=== PATIENT | female | born 1955 | race African-American/Black ===

== ENCOUNTER 2016-06-19 13:28 | Emergency (ER) | payer SELFPAY ==
[~2016-06-19] VITALS: Ht 162.6 cm; Wt 89.0 kg
[2016-06-19 13:32] VITALS: BP 204/136; PULSE 98; RESP 16; TEMP 98.8; O2SAT 97
--- NOTE | 2016-06-19 14:19 | PD ---
HPI Chief Complaint: Fall Time Seen by Provider: 13:51 Travel History International Travel<30 days: No Contact w/Intl Traveler<30days: No Traveled to known affect area: No History of Present Illness HPI This is a 60 year-old woman who presents to the emergency department after falling out of bed this morning. She is otherwise healthy with no known medical problems but doesn't really like to see doctors. She complains of pain on the left side of her face, her left shoulder, both knees. Unclear if she got knocked out or not. Some clear she had syncope or chest fell. She states she otherwise has been feeling generally well and healthy over the past several weeks. No other complaints. History Past Medical History Medical History: Denies Significant Hx Social History Tobacco Use: No Allergies-Medications (Allergen,Severity, Reaction): Coded Allergies: Penicillin (Verified Allergy, Severe, 06/19/16) Reported Meds & Prescriptions Reported Meds & Active Scripts Active No Active Prescriptions or Reported Medications Review of Systems Except as stated in HPI: all other systems reviewed are Neg Physical Exam Narrative GENERAL: Well-appearing 60 year-old woman, no acute distress. SKIN: Warm and dry. HEAD: Atraumatic. Normocephalic. EYES: Pupils equal and round. No scleral icterus. No injection or drainage. ENT: Tenderness over the left zygoma and left maxilla. Inside the mouth or bleeding. She has 2 small cuts on the buccal mucosa on the left. The teeth in the mandible and maxilla are tender to percussion on the left. There is no teeth that are obviously loose fractured or subluxed. She also has an intraoral laceration in the lower vestibule on the left side where it looks like some of the buccal mucosa has pulled away from the gingiva causing about a 1 cm laceration. NECK: Trachea midline. No midline tenderness. Full painless range of motion. CARDIOVASCULAR: Regular rate and rhythm. No murmur appreciated. RESPIRATORY: No accessory muscle use. Clear to auscultation. Breath sounds equal bilaterally. GASTROINTESTINAL: Abdomen soft, non-tender, nondistended. Hepatic and splenic margins not palpable. MUSCULOSKELETAL: No obvious deformities. Examination of the left upper extremity reveals no pain or tenderness at the elbow or wrist. A little bit tenderness the shoulder, more on the lateral shoulder. She is limited range of motion due to pain. She has more limited active range of motion and passive range of motion. Passively she can get to about 90 and abduction or flexion. She is unable to hold the arm at abduction or flexion after his passively raise. She has pain with internal or external rotation especially against resistance. Both her knees are little bit tender. She has preserved range of motion of the hips and knees however. There is no obvious effusion on either knee. No other obvious extremity injuries. NEUROLOGICAL: Awake and alert. No obvious cranial nerve deficits. Motor grossly within normal limits. Normal speech. PSYCHIATRIC: Appropriate mood and affect; insight and judgment normal. Data Data Last Documented VS Vital Signs Date Time Temp Pulse Resp B/P Pulse Ox O2 Delivery O2 Flow Rate FiO2 06/19/16 16:20 100 18 237/115 96 Room Air 06/19/16 13:[address] Brain W/O Iv Contrast(Rout) (06/19/16 ) Ct Facial Bones W/O Iv Cont (06/19/16 ) Shoulder, Complete (>2vws) (06/19/16 ) Knee, Complete (4vws) (06/19/16 ) Complete Blood Count With Diff (06/19/16 14:08) Comprehensive Metabolic Panel (06/19/16 14:08) Urinalysis - C+S If Indicated (06/19/16 14:08) Electrocardiogram (06/19/16 ) Knee, Complete (4vws) (06/19/16 ) Urine Culture (06/19/16 14:45) Ciprofloxacin 400 Mg Premix (Cipro 400 M (06/19/16 15:15) Ciprofloxacin (Cipro) (06/19/16 15:15) Labs Laboratory Tests Test 06/19/16 06/19/16 14:30 14:45 White Blood Count 16.5 TH/MM3 Red Blood Count 5.64 MIL/MM3 Hemoglobin 14.6 GM/DL Hematocrit 45.6 % Mean Corpuscular Volume 80.8 FL Mean Corpuscular Hemoglobin 25.8 PG Mean Corpuscular Hemoglobin 31.9 % Concent Red Cell Distribution Width 12.2 % Platelet Count 322 TH/MM3 Mean Platelet Volume 7.9 FL Neutrophils (%) (Auto) 87.1 % Lymphocytes (%) (Auto) 10.4 % Monocytes (%) (Auto) 2.1 % Eosinophils (%) (Auto) 0.3 % Basophils (%) (Auto) 0.1 % Neutrophils # (Auto) 14.5 TH/MM3 Lymphocytes # (Auto) 1.7 TH/MM3 Monocytes # (Auto) 0.3 TH/MM3 Eosinophils # (Auto) 0.0 TH/MM3 Basophils # (Auto) 0.0 TH/MM3 CBC Comment DIFF FINAL Differential Comment Sodium Level 141 MEQ/L Potassium Level 3.6 MEQ/L Chloride Level 105 MEQ/L Carbon Dioxide Level 27.0 MEQ/L Anion Gap 9 MEQ/L Blood Urea Nitrogen 13 MG/DL Creatinine 0.96 MG/DL Estimat Glomerular Filtration 71 ML/MIN Rate Random Glucose 159 MG/DL Calcium Level 9.3 MG/DL Total Bilirubin 0.6 MG/DL Aspartate Amino Transf 5 U/L (AST/SGOT) Alanine Aminotransferase 18 U/L (ALT/SGPT) Alkaline Phosphatase 108 U/L Total Protein 8.6 GM/DL Albumin 3.7 GM/DL Urine Collection Type CLEAN CATCH Urine Color YELLOW Urine Turbidity SLIGHT Urine pH 6.0 Urine Specific J[place]ison 1.025 Urine Protein 100 mg/dL Urine Glucose (UA) NEG mg/dL Urine Ketones TRACE mg/dL Urine Occult Blood SMALL Urine Nitrite NEG Urine Bilirubin NEG Urine Leukocyte Esterase NEG Urine RBC 10-14 /hpf Urine WBC 9-14 /hpf Urine Squamous Epithelial > 8 /hpf Cells Urine Bacteria MANY /hpf Microscopic Urinalysis Comment CULTURE INDICATED Urine Collection Time 14:45 MDM Medical Decision Making Medical Screen Exam Complete: Yes Emergency Medical Condition: Yes Interpretation(s) My review of EKG: Normal sinus rhythm at a rate of 97, lateral T wave inversions , some inferior Q waves, anterior septal Q waves, likely LVH, possible ischemia. No old for comparison. LABS: CBC remarkable for mild leukocytosis. CMP unremarkable UA with pyuria, hematuria. CT head: Negative CT face: Perimandibular soft tissue injury. Bilateral knee x-rays negative Shoulder x-ray negative Differential Diagnosis Fall, facial injury, rotator cuff injury, fracture, dehydration, weakness, other Narrative Course Medical decision making INITIAL: 60 year-old woman, presents with complaints of pain after a fall. She appears several rotator cuff injury in the left shoulder. I don't think she probably has a fracture. These look okay. She may have facial injuries. She is a little bit of bleeding that appears to be from small mucosal lacerations on the cheek. We'll check labs, CT imaging, EKG, likely discharge. FINAL: Urine shows a little bit of pyuria suggestive of cystitis. Otherwise workup is unremarkable. She does have some intraoral lacerations, the most concerning of which is in the lower vestibule on the left side. This would be very difficult area to offer any repair. I discussed this with the patient, would recommend Peridex rinses, and monitoring. We'll also place her on soft or liquid diet only until this heals in one week. Diagnosis Primary Impression: Laceration of mouth Qualified Code: S01.512A - Laceration of mouth, initial encounter Additional Impressions: Injury of left shoulder Qualified Code: S49.92XA - Injury of left shoulder, initial encounter UTI (urinary tract infection) Qualified Code: N30.00 - Acute cystitis without hematuria Patient Instructions: General Instructions Additional Instructions: Take antibiotics as prescribed. Use oral rinse twice daily. Use soft or liquid diet only. Do not play with the cuts and your mouth. This should heal over about 1 week. Take blood pressure medicines as prescribed. Keep a log of your blood pressure. Follow-up with a primary care physician in the next 2-3 weeks for repeat evaluation. You may have torn your left rotator cuff. If he had persistent pain or weakness after one week, follow-up with your primary care physician. Med/Other Pt SpecificInfo: Prescription(s) given Scripts Ciprofloxacin (Cipro)500 Mg Zcp167 Mg PO BID 5 Days Ref 0 Prov:Ricky Kraft MD 06/19/16 Chlorhexidine Gluconate (Mouth) Liq (Peridex Liq)0.12% Soln15 Ml SWISH-SPIT BID #473 ML Ref 0 Prov:Ricky Kraft MD 06/19/16 Amlodipine 5 Mg Tab5 Mg PO DAILY #30 TAB Ref 0 Prov:Ricky Kraft MD 06/19/16 Ricky Kraft MD Jun 19, 2016 14:19
[2016-06-19 14:39] LABS: AUTOMATED NEUTROPHIL # 14.5 TH/MM3 (1.8-7.7); BASOPHIL % 0.1 % (0.0-2.0); EOSINOPHIL % 0.3 % (0.0-4.0); HEMATOCRIT 45.6 % (35.0-46.0); LYMPH % 10.4 % (9.0-44.0); LYMPHOCYTE # 1.7 TH/MM3 (1.0-4.8); MEAN CELL VOLUME 80.8 FL (80.0-100.0); MEAN CORPUSCULAR HEMOGLOBIN 25.8 PG (27.0-34.0); MEAN CORPUSCULAR HGB CONC 31.9 % (32.0-36.0); MONO % 2.1 % (0.0-8.0); NEUT % 87.1 % (16.0-70.0); PLATELET COUNT 322 TH/MM3 (150-450); RED BLOOD COUNT 5.64 MIL/MM3 (4.00-5.30); RED CELL DISTRIBUTION WIDTH 12.2 % (11.6-17.2); WHITE BLOOD COUNT 16.5 TH/MM3 (4.0-11.0)
[2016-06-19 14:41] LABS: HEMO FLAGS DIFF FINAL
[2016-06-19 14:50] LABS: CHLORIDE 105 MEQ/L (98-107); POTASSIUM 3.6 MEQ/L (3.5-5.1); SODIUM (NA) 141 MEQ/L (136-145)
[2016-06-19 14:52] LABS: BLOOD, URINE SMALL (NEG); GLUCOSE,URINE NEG (NEG); KETONE, URINE TRACE mg/dL (NEG); NITRITE,URINE NEG (NEG)
[2016-06-19 14:55] LABS: ANION GAP 9 MEQ/L (5-15); BLOOD UREA NITROGEN 13 MG/DL (7-18)
[2016-06-19 14:57] LABS: METHOD OF COLLECTION CLEAN CATCH
[2016-06-19 14:58] LABS: ALT (GPT) 18 U/L (10-53); AST (GOT) 5 U/L (15-37); GLOMERULAR FILTRATION RATE 71 ML/MIN (>89)
[2016-06-19 14:58] LABS: BACTERIA, URINE MANY /hpf; COMMENT (UR) CULTURE INDICATED; CULTURE IF INDICATED CULTURE INDICATED; SQUAMOUS EPITHELIAL CELL URINE > 8 /hpf (0-5); URINE COLOR YELLOW (YELLW/STRAW)
[2016-06-19 14:59] LABS: TOTAL BILIRUBIN ADULT 0.6 MG/DL (0.2-1.0)
[2016-06-19 15:01] LABS: ALKALINE PHOSPHATASE 108 U/L (45-117)
[2016-06-19] MEDS ORDERED: CIPROFLOXACIN 500 MG TAB PO ONE (15:15)
[2016-06-19] MEDS ORDERED: CIPROFLOXACIN 400 MG PREMIX 200 ML IV ONE (15:15)
--- NOTE | 2016-06-19 15:24 | RADHPO ---
EXAM DATE/TIME: 06/19/2016 14:54 [facility] COMPARISON: No previous studies available for comparison. INDICATIONS : Fall from bed today, left facial pain. RADIATION DOSE: 64.85 CTDIvol (mGy) MEDICAL HISTORY : None SURGICAL HISTORY : None. ENCOUNTER: Initial ACUITY: 1 day PAIN SCALE: 6/10 LOCATION: Left face TECHNIQUE: Multiple contiguous axial images were obtained of the head. Using automated exposure control and adj ustment of the mA and/or kV according to patient size, radiation dose was kept as low as reasonably a chievable to obtain optimal diagnostic quality images. FINDINGS: CEREBRUM: The ventricles are normal for age. No evidence of midline shift, mass lesion, hemorrhage or acute in farction. No extra-axial fluid collections are seen. POSTERIOR FOSSA: The cerebellum and brainstem are intact. The 4th ventricle is midline. The cerebellopontine angle i s unremarkable. EXTRACRANIAL: The visualized portion of the orbits is intact. SKULL: There is a focal air lucency at the right parietal skull. This is nonspecific. Likely is related to a n incidental finding such as a hemangioma. No evidence of skull fracture. CONCLUSION: No acute disease. Vincent Sarmiento MD on June 19, 2016 at 15:21 Board Certified Radiologist. This report was verified electronically.
--- NOTE | 2016-06-19 15:35 | RADHPO ---
EXAM DATE/TIME: 06/19/2016 14:54 [facility] COMPARISON: No previous studies available for comparison. INDICATIONS : Fall from bed today, left facial pain. RADIATION DOSE: 19.54 CTDIvol (mGy) MEDICAL HISTORY : None SURGICAL HISTORY : None. ENCOUNTER: Initial ACUITY: 1 day PAIN SCORE: 6/10 LOCATION: Left face TECHNIQUE: Volumetric scanning of the facial bones was performed. Using automated exposure control and adjustme nt of the mA and/or kV according to patient size, radiation dose was kept as low as reasonably achiev able to obtain optimal diagnostic quality images. FINDINGS: ORBITS: The orbital and infraorbital osseous structures are intact. The retroconal structures have a normal configuration. No radiopaque foreign bodies are seen. NASAL BONE: The nasal bone and maxillary spine are intact ZYGOMATIC ARCHES: Symmetric without evidence of fracture. SINUSES: There is mild mucosal disease of the left sphenoid sinus. The maxillary, ethmoid and frontal sinuses are intact. No air-fluid levels seen. NASAL CAVITY: The nasal septum is intact and midline. The lacrimal ducts are intact. SOFT TISSUES: There is some soft tissue swelling in the left inferior perimandibular soft tissues. Air is seen in t his region. INTRACRANIAL: No intracranial air seen. CRIBIFORM PLATE: Grossly intact. CONCLUSION: Left inferior perimandibular injury. Vincent Sarmiento MD on June 19, 2016 at 15:24 Board Certified Radiologist. This report was verified electronically.
[2016-06-19 15:36] VITALS: BP 223/110; PULSE 100; RESP 18; O2SAT 99
--- NOTE | 2016-06-19 15:48 | RADHPO ---
EXAM DATE/TIME: 06/19/2016 15:15 [facility] COMPARISON: No previous studies available for comparison. INDICATIONS : Fall, left shoulder pain, limited ROM MEDICAL HISTORY : None. SURGICAL HISTORY : None. ENCOUNTER: Initial ACUITY: 1 day PAIN SCORE: 9/10 LOCATION: Left shoulder FINDINGS: Multiple view examination of the left shoulder demonstrates no evidence of fracture or dislocation. The glenohumeral and acromioclavicular joints are maintained. There is normal range of motion betwee n internal and external rotation. Bony mineralization is normal. CONCLUSION: No acute disease. Vincent Sarmiento MD on June 19, 2016 at 15:46 Board Certified Radiologist. This report was verified electronically.
--- NOTE | 2016-06-19 16:02 | RADHPO ---
EXAM DATE/TIME: 06/19/2016 15:04 [facility] COMPARISON: No previous studies available for comparison. INDICATIONS : Fall, left knee pain MEDICAL HISTORY : None. SURGICAL HISTORY : None. ENCOUNTER: Initial ACUITY: 1 day PAIN SCORE: 9/10 LOCATION: Left knee FINDINGS: The knee joint is grossly normally aligned. There may be some narrowing of the medial joint space. There is some minimal osteophyte seen at the medial femoral condyle. No effusion is seen. No fractu re is seen. CONCLUSION: No acute abnormality is seen. Vincent Sarmiento MD on June 19, 2016 at 15:44 Board Certified Radiologist. This report was verified electronically.
--- NOTE | 2016-06-19 16:03 | RADHPO ---
EXAM DATE/TIME: 06/19/2016 15:09 [facility] COMPARISON: No previous studies available for comparison. INDICATIONS : Fall, right knee pain MEDICAL HISTORY : None. SURGICAL HISTORY : None. ENCOUNTER: Initial ACUITY: 1 day PAIN SCORE: 9/10 LOCATION: Right knee FINDINGS: The knee joint is aligned. No fracture is seen. No effusion is seen. There is some hypertrophic of the posterior aspect of the patella and at the medial joint space. CONCLUSION: No acute abnormality is seen. Vincent Sarimento MD on June 19, 2016 at 15:45 Board Certified Radiologist. This report was verified electronically.
[2016-06-19 16:20] VITALS: BP 237/115; PULSE 100; RESP 18; O2SAT 96
[2016-06-19] MEDS ORDERED: CIPR-9 PO (16:24)
[2016-06-19] MEDS ORDERED: PERI0.126 SWISH-SPIT (16:24)
[2016-06-19] MEDS ORDERED: AMLO5TAB2 PO (16:24)
[2016-06-19] MEDS ORDERED: amLODIPine BESYLATE 5 MG TAB PO ONE (16:30)
--- NOTE | 2016-06-20 16:38 | EKG ---
Date Performed: 06/19/2016 Time Performed: 14:21:30 PTAGE: 60 years EKG: Sinus rhythm Left axis deviation Possible anteroseptal infarct - age undetermined Left ventricular hypertrophy La teral ST-T changes may be due to hypertrophy and/or ischemia Abnormal ECG NO PREVIOUS TRACING DOCTOR: Padmini Carmona Interpretating Date/Time 06/20/2016 16:36:08
== END 2016-06-19 16:51 | disposition home or self-care (01) ==
LOC: PHED 13:28
DX: S01.512A Laceration without foreign body of oral cavity, initial encounter (principal); S49.92XA Unspecified injury of left shoulder and upper arm, initial encounter; N30.00 Acute cystitis without hematuria; M25.561 Pain in right knee; M25.562 Pain in left knee; R94.31 Abnormal electrocardiogram [ECG] [EKG]; W06.XXXA Fall from bed, initial encounter
CPT/HCPCS: 70450; 70486; 73030; 73564; 80053; 81001; 85025; 87086; 93005